=== PATIENT | female | born 1995 | race African-American/Black ===

== ENCOUNTER 2019-07-03 16:52 | Emergency (ER) | payer SELFPAY ==
[2019-07-03 17:04] VITALS: BP 153/85; PULSE 94; RESP 19; TEMP 36.9; O2SAT 99
--- NOTE | 2019-07-03 17:31 | ED.FEMALEGU ---
HPI - Female Genitourinary General Chief complaint: Vaginal Bleeding Stated complaint: ?,BLEEDING Time Seen by Provider: 07/03/19 17:07 Source: patient and RN notes reviewed Mode of arrival: other Limitations: no limitations History of Present Illness HPI Narrative: Pt is a 23 y/o female who presents to the ED with c/o vaginal bleeding that began today. Pt states that she took multiple tests at home and they were all positive. Pt is unsure of how long she has been , but she notes that she might be 2-5 week . Pt notes that her vaginal bleeding is light and she has not gone through one panty liner per hour. Pt notes that she was supposed to confirm her at [facility], but she was sent to the ED for further evaluation. Pt denies dizziness and lightheadedness. MD elicited complaint: vaginal bleeding Onset (ago): hour(s) Location of symptoms: vaginal Severity: mild Consistency: constant Vaginal bleeding: scant Associated symptoms: denies other symptoms Sexual activity: Yes Possible : at home test positive Related Data Home Medications Medication Instructions Recorded Confirmed PNV cmb#[id number] fumarate-FA 1 tablet PO DAILY 07/03/19 [] Allergies Allergy/AdvReac Type Severity Reaction Status Date / Time No Known Allergies Allergy Verified 07/03/19 17:55 Review of Systems Review of Systems: All systems reviewed & are unremarkable except as noted in HPI and below Cardiovascular: Cardiovascular: Denies lightheadedness Genitourinary: Genitourinary: Reports abnormal vaginal bleeding Neurologic: Denies dizziness PMFSH Past Medical History Medical History (Updated 07/03/19 @ 19:16 by Dario Reis MD) Patient denies significant medical history Surgical History Surgical History (Updated 07/03/19 @ 18:07 by Mayuri Gomez) No history of previous surgery Social History Social History (Updated 07/03/19 @ 18:07 by Mayuri Gomez) Smoking status: Never smoker Gender identity (if verbalized by the patient): Female Exam Narrative: Exam Narrative: GENERAL: Well-appearing, well-nourished, and in no acute distress. HEAD: Normocephalic, atraumatic. EYES: PERRLA and EOMI. ENT: Nares clear, . Mucous membranes moist. NECK: Supple. CHEST: Clear to auscultation. No respiratory distress. HEART: Regular rate and rhythm. No murmur heard. Normal peripheral pulses. ABDOMEN: Soft, nontender, nondistended, normal active bowel sounds. EXTREMITIES: Normal range of motion. No edema. SKIN: Warm, dry, no rash. NEURO: No focal deficits. Alert and oriented x3. PSYCH: Normal mood and affect. Course Course Emergency Course: Patient later mentions that she had blood work done at the other hospital on the weekend her beta-hCG was 62 however at this time here it is 23 so most likely she must be miscarrying. Advised her to follow-up with her OB doctor. She is not having any symptoms of any abdominal pain or vaginal bleeding at this time. Vital Signs Vital signs: Vital Signs Temperature 36.9 C 07/03/19 17:04 Pulse Rate 94 07/03/19 17:04 Respiratory Rate 19 07/03/19 17:04 Blood Pressure 153/85 H 07/03/19 17:04 Pulse Oximetry 99 07/03/19 17:04 Temperature 36.9 C 07/03/19 17:04 Pulse Rate 94 07/03/19 17:04 Respiratory Rate 19 07/03/19 17:04 Blood Pressure 153/85 H 07/03/19 17:04 Pulse Oximetry 99 07/03/19 17:04 MDM - Female Genitourinary Lab Data Result diagrams: 07/03/19 18:04 Labs: Lab Results 07/03/19 07/03/19 07/03/19 Range/Units 17:41 18:04 18:04 WBC 10.9 H (4.5-10.0) K/mm3 RBC 4.62 (4.2-5.4) M/mm3 Hgb 13.3 (12.0-15.0) g/dL Hct 41.0 (37.0-47.0) % MCV 88.7 (80-100) fl MCH 28.8 (26-34) pg MCHC 32.4 (32-36) g/dl RDW 13.2 (11.5-14.5) % Plt Count 256 (150-375) k/mm3 MPV 10.7 H (7.4-10.4) fl Immature Gran % (Auto) 0.3 (0-0.5) % Neut
[2019-07-03 17:54] LABS: Add Urine Microscopic? YES; Appearance Urine Cloudy (Clear); Bacteria Urine Trace /hpf; Bilirubin Urine Negative (Negative); Blood Urine 3+ (Negative); Color Urine Yellow (Yellow); Glucose Urine UA Negative (Negative); Ketones Urine Negative (Negative); Leukocyte Esterase Ur 1+ LEU/UL (Negative); Mucus Urine Rare /lpf; Nitrate Urine Negative (Negative); Protein Urine 1+ mg/dL (Negative); RBC Urine 0-2 /hpf (0-2); Specific Grav Ur 1.018 (1.001-1.035); Squamous Epithelial Cell Urine Many /hpf (Few); WBC Urine 16-20 /hpf
[2019-07-03 18:12] LABS: Basophils Percent Auto 0.4 % (0.2-1.2); Eosinophils Absolute Auto 0.1 K/mm3 (0-0.3); Hemoglobin 13.3 g/dL (12.0-15.0); Immature Granulocyte Absolute 0.03 K/mm3 (0.00-0.031); Immature Granulocyte Percent A 0.3 % (0-0.5); Lymphocytes Absolute Auto 1.44 K/mm3 (0.9-3.2); Lymphocytes Percent Auto 13.2 % (18.3-44.2); Mean Corpuscular HGB Conc 32.4 g/dl (32-36); Mean Corpuscular Hemoglobin 28.8 pg (26-34); Mean Corpuscular Volume 88.7 fl (80-100); Mean Platelet Volume 10.7 fl (7.4-10.4); Monocytes Absolute Auto 0.7 K/mm3 (0.1-0.6); Monocytes Percent Auto 6.4 % (2.6-8.5); Neutrophils Absolute Auto 8.6 K/mm3 (1.3-6.7); Neutrophils Percent Auto 78.7 % (45.5-73.1); Platelet Count Result 256 k/mm3 (150-375); Red Blood Count 4.62 M/mm3 (4.2-5.4); Red Cell Distribution Width 13.2 % (11.5-14.5); White Blood Count 10.9 K/mm3 (4.5-10.0)
[2019-07-03 18:39] LABS: Beta HCG Quantitative 23.56 mIU/ML
[2019-07-03 19:40] VITALS: BP 126/89; PULSE 80; RESP 18; O2SAT 100
== END 2019-07-03 19:20 | disposition home or self-care (01) ==
PROVIDERS: Emergency Provider Family Medicine
DX: O03.4 Incomplete spontaneous abortion without complication (principal)
CPT/HCPCS: 36415; 81001; 81025; 84702; 85025; 87086; 87088; 99283